=== PATIENT | female | born 1955 | race Caucasian/White ===

== ENCOUNTER → 2016-09-30 | Outpatient (CLI) | payer BC | LOC: MC.RAD 08:52 | DX: Z12.31 Encounter for screening mammogram for malignant neoplasm of breast (principal); Z85.3 Personal history of malignant neoplasm of breast; Z92.3 Personal history of irradiation ==

== ENCOUNTER → 2017-10-01 | Outpatient (CLI) | payer BC | LOC: MC.RAD 10:13 | DX: Z12.31 Encounter for screening mammogram for malignant neoplasm of breast (principal); Z85.3 Personal history of malignant neoplasm of breast; Z98.890 Other specified postprocedural states; Z92.3 Personal history of irradiation ==

== ENCOUNTER → 2018-10-03 | Outpatient (CLI) | payer BC | LOC: MC.RAD 09:05 | DX: Z12.31 Encounter for screening mammogram for malignant neoplasm of breast (principal); Z98.890 Other specified postprocedural states; Z85.3 Personal history of malignant neoplasm of breast; Z92.3 Personal history of irradiation ==

== ENCOUNTER → 2019-03-07 | Outpatient (CLI) | payer BC | LOC: MC.RAD 09:52 | DX: L76.82 Other postprocedural complications of skin and subcutaneous tissue (principal); N64.89 Other specified disorders of breast; Z92.3 Personal history of irradiation; Z85.3 Personal history of malignant neoplasm of breast; Z98.890 Other specified postprocedural states | CPT/HCPCS: G0279 ==

== ENCOUNTER → 2019-10-05 | Outpatient (CLI) | payer BC | LOC: MC.RAD 10:52 | DX: Z12.31 Encounter for screening mammogram for malignant neoplasm of breast (principal); Z98.890 Other specified postprocedural states; Z92.3 Personal history of irradiation; Z85.3 Personal history of malignant neoplasm of breast ==

== ENCOUNTER → 2020-10-07 | Outpatient (CLI) | payer BC | LOC: MC.RAD 10:24 | DX: Z12.31 Encounter for screening mammogram for malignant neoplasm of breast (principal); C50.511 Malignant neoplasm of lower-outer quadrant of right female breast ==

== ENCOUNTER → 2021-10-08 | Outpatient (CLI) | payer BC | LOC: MC.RAD 12:23 | DX: Z12.31 Encounter for screening mammogram for malignant neoplasm of breast (principal); Z85.3 Personal history of malignant neoplasm of breast ==